=== PATIENT | female | born 1975 | race Caucasian/White ===

== ENCOUNTER 2023-08-19 17:51 | Emergency (ER) | payer OTHER ==
[~2023-08-19 17:51] MED LIST: Iopamidol 370 76% 100 ML VIAL ONE
[2023-08-19] MEDS ORDERED: Mag-Al 1200 mg/1200 mg/30 ML UDCUP ONE (18:43)
[2023-08-19] MEDS ORDERED: Lidocaine Viscous Sol 2% 15 ml UD Cup ONE (18:44)
[2023-08-19] MEDS ORDERED: Famotidine/PF 20 mg/2ml Vial ONE (18:44)
[2023-08-19 18:57] LABS: Bacteria/HPF 1+ HPF (None Seen); Bilirubin Small (Negative); Blood, Urine Moderate (Negative); CAUTI Indications for Culture Pelvic or flank pain; Clarity Slightly Cloudy (Clear); Glucose, Urine (Dipstick) Negative (Negative); Ketone, Urine Negative (Negative); Leukocyte Negative (Negative); Nitrite Negative (Negative); Protein, Urine (Dipstick) 30 mg/dL (Neg-Trace); Urobilinogen 0.2 mg/dL (Less than 2); pH, Urine 5.5 (5.0-9.0)
[2023-08-19 18:59] LABS: #Basophils 0.1 thou/uL (0.0-0.2); #Eosinphils 0.3 thou/uL (0.0-0.7); #Lymphocytes 2.4 thou/uL (1.20-3.40); #Monocytes 0.9 thou/uL (0.11-0.59); #Neutrophils 10.7 thou/uL (1.40-6.50); %Eosinophils 2.3 % (0.0-10.0); %Lymphocytes 16.6 % (21.0-51.0); %Monocytes 6.1 % (0.0-10.0); Hematocrit 43.3 % (36.0-47.0); Hemoglobin 13.4 g/dL (12.0-16.0); Mean Corpuscular Volume 90.5 fl (78.0-98.0); Mean Platelet Volume 7.1 fL (7.4-10.4); Platelet Count 528 10x3/uL (130-400); RBC Distribution Width 11.9 % (11.5-14.5); Red Blood Cell (RBC) Count 4.79 mill/uL (4.20-5.40); White Blood Cell (WBC) Count 14.5 10x3/uL (4.8-10.8)
[2023-08-19 18:59] LABS: Urine Culture Reflex Yes Yes
[2023-08-19 19:12] LABS: ALT (SGPT) 16 U/L (8-55); AST (SGOT) 14 U/L (5-34); Albumin 3.9 g/dL (3.5-5.0); Alkaline Phosphatase 80 U/L (40-110); Anion Gap 17 mmol/L (10-20); BUN (Urea Nitrogen) 9 mg/dL (7.0-18.7); Bilirubin, Total 0.3 mg/dL (0.2-1.2); Calc. Creatinine Clearance 0 mL/min (70-130); Calcium 8.7 mg/dL (7.8-10.44); Carbon Dioxide 20 mmol/L (22-29); Chloride 108 mmol/L (98-107); Estimated GFR 98; Globulin 3.3 g/dL (2.4-3.5); Glucose 137 mg/dL (70-105); Lipase 10 U/L (8-78); Potassium 3.8 mmol/L (3.5-5.1); Protein, Total 7.2 g/dL (6.0-8.3); Sodium 141 mmol/L (136-145)
[2023-08-19] MEDS ORDERED: Lactated Ringer's 1,000 ML ONE (19:17)
[2023-08-19] MEDS ORDERED: Morphine 4 MG/ML VIAL ONE (19:17)
[2023-08-19 19:45] LABS: Troponin I Less than 0.010 ng/mL (< 0.028)
[2023-08-19] MEDS ORDERED: Sodium Chloride 0.9% 500 ML ONE (20:56)
[2023-08-19] MEDS ORDERED: Piperacillin/Tazobactam 4.5 GM VIAL ONE (20:56)
[2023-08-19] MEDS ORDERED: Sodium Chloride 0.9% 100 ML ONE (20:56)
[2023-08-19] MEDS ORDERED: Vancomycin 1 GM VIAL ONE (20:56)
[2023-08-19 21:26] LABS: Lactic Acid 1.1 mmol/L (0.5-2.2)
== END 2023-08-19 22:23 | disposition short-term general hospital (02) ==
LOC: MADERS 17:51
DX: A41.9 Sepsis, unspecified organism (principal); R18.8 Other ascites; K52.9 Noninfective gastroenteritis and colitis, unspecified; K52.89 Other specified noninfective gastroenteritis and colitis; E03.9 Hypothyroidism, unspecified
CPT/HCPCS: 36415; 74174; 80053; 81001; 82274; 83605; 83690; 84484; 85025; 87040; 87077; 87086; 87186; 93005; 94760; 96361; 96365; 96367; 96375; J2270; J2543; J3370; J3490; J7030; J7120; Q9967; S0028